=== PATIENT | female | born 1975 | race Caucasian/White ===

== ENCOUNTER 2022-08-02 06:55 | Day surgery (SDC) | payer OTHER ==
[2022-08-02] VITALS (226 sets, daily range): BP systolic 80–167; BP diastolic 37–114
[~2022-08-02] VITALS: Ht 175.3 cm; Wt 64.4 kg
--- NOTE | 2022-08-02 06:55 | NUR ---
Patient arrived to the [facility] suite, identification and demographics confirmed. Patient to room 10, AAO, ambulatory, vitals obtained, ID/allergy/fall bands placed, changed into hospital gown, EVELIN hose, and non-slip socks. Procedure and timeline explained for treatment and discharge. All questions answered and the patient presents no concerns at this time.
--- NOTE | 2022-08-02 07:45 | NUR ---
Dr. Cervantes telephoned with patient intake information including usage, dose, last dose/time taken and initial vital signs. Patient history and allergies reviewed with MD. Patient medicated per MD orders. In addition to Clonidine and Valium, patient received 1000 mcg B12 PO, 20 mg Pepcid PO, and Scopolamine TD patch. Medication indication and education provided prior to adminstration.
[2022-08-02 08:28] LABS: BASO% 0.8 % (0-3); EOS% 4.4 % (0-8); HEMATOCRIT 35.7 % (37.0-47.0); HEMOGLOBIN 11.4 g/dl (12.0-16.0); LYMPH% 24.4 % (15-41); MEAN CELL VOLUME 91.1 fL CALC (80.0-100.0); MEAN CORPUSCULAR HGB 29.1 pG CALC (26.0-32.0); MEAN CORPUSCULAR HGB CONC 31.9 g/dL CAL (32.0-36.0); MONO% 9.6 % (2-13); NEUT# 4.05 thou/uL (2.00-7.15); NEUT% 60.8 % (42-76); RED BLOOD COUNT 3.92 mill/uL (4.20-5.60); RED CELL DISTRI WIDTH 15.1 % (11.5-15.5)
[2022-08-02 08:33] LABS: ALBUMIN 4.1 g/dL (3.2-5.0); ALKALINE PHOSPHATASE 59 u/l (38-126); ANION GAP 11 (6-22 (CALC)); BILIRUBIN, TOTAL 0.4 mg/dL (0.02-1.3); BUN 9 mg/dL (7-17); BUN/CREATININE RATIO 20 (12-20 (CALC)); CARBON DIOXIDE 27 mmol/l (22-30); CHLORIDE 104 mmol/l (95-108); CREATININE 0.4 mg/dL (0.5-1.0); GFR FOR AFR.AMER. > 60 ML/MIN (>=60 (CALC)); GFR OTHER RACES > 60 ML/MIN (>=60 (CALC)); POTASSIUM 4.3 mmol/l (3.5-5.1); SGOT/AST 30 u/l (14-36); SODIUM 138 mmol/l (137-146)
[2022-08-02] MEDS ORDERED: LYRICA100 MG PO (10:15)
[2022-08-02] MEDS ORDERED: LEVOCETIRIZINE D5 MG PO (10:16)
[2022-08-02] MEDS ORDERED: HUMIRA40 MG/0.8 SC (10:17)
--- NOTE | 2022-08-02 12:10 | NUR ---
Induction Note Patient to [facility] procedure room. Time out performed at 1150. Patient placed on monitors, Larisa hugger, bilateral wrist restraints applied for ET tube protection. Versed 5mg given IV push at 1150 Tourniquet applied to rt arm Lidocaine 100mg given at 1152 IV push followed by Rocoronium 10mg at 1152 IV push and held for 90 seconds. Propofol bolus of 200mg given at 1153 IV push. Succinylcholine 80mg given IV push at 1154. Smooth intubation with 7.5 ETT. Positive CO2. Positive Auscultation for air exchange. Patient placed on ventilator for spontaneous ventilation. Placed on Propofol IV drip at 1155. OG inserted. Positive air on auscultation. Positive gastric content. Stomach washed at this time. Naltrexone 50mg given via OG tube with Clonidine 0.1 mg given via OG Tube. OG clamped for 45 minutes. Will monitor patient for symptoms of withdrawal and adjust propfol accordingly.
--- NOTE | 2022-08-02 12:55 | NUR ---
OG open note OG open at this time. Gastric content draining into drainage bag. OG to drain for 45 minutes. Propofol will be titrated down based on patient.
--- NOTE | 2022-08-02 13:40 | NUR ---
OG close note Stomach washed at this time. Naltrexone 50 mg with Clonidine 0.1 mg via OG tube. OG will be clamped for 45 minutes.
[2022-08-02] MEDS ORDERED: NALTREXONE50 MG PO (13:54)
[2022-08-02] MEDS ORDERED: CLONIDINE0.1 MG PO (13:54)
[2022-08-02] MEDS ORDERED: KLONOPIN2 MG PO (13:55)
--- NOTE | 2022-08-02 15:15 | NUR ---
OG close note Stomach washed at this time. Naltrexone 50 mg with Clonidine 0.1 mg via OG tube. OG will be clamped for 45 minutes.
--- NOTE | 2022-08-02 17:00 | NUR ---
glycopyrulanate 0.2mg iv given for bradycardia as per dr españa order, with good result. bp stable.
--- NOTE | 2022-08-02 17:10 | NUR ---
OG close note Stomach washed at this time. Naltrexone 12.5 mg with Clonidine 0 mg via OG tube. OG will be clamped for 45 minutes.
--- NOTE | 2022-08-02 17:55 | NUR ---
stomach rinsed and prepared for extubation, straight cath for 00cc yellow urine.
--- NOTE | 2022-08-02 18:10 | NUR ---
Extubation note Closing medications given Benadryl 50mg IV push, Decadron 10mg IV push,Magnesium 4 grams IV, Zofran 8mg IV push, Octreotide 100mcg SC. Stomach washed out prior to extubation. Suctioned gastric content. OG removed. Patient extubated. Propofol Discontinued. Wrist restraints removed. Larisa hugger Removed. See ANR Moderate sedate recovery record for further notes and assessment.
--- NOTE | 2022-08-02 19:20 | NUR ---
pt to room via stretcher in no distress, resp even and unlabored. vss. bedside report to VASYL Maxwell
--- NOTE | 2022-08-02 19:26 | NUR ---
PATIENT ARRIVED TO FLOOR AT 1849, PATIENT TRANSPORTED VIA BED, REPORT GIVEN BY NURSE JIMBO, PATIENT C/O BEING COLD, BEAR HUGGER IN PLACE, PATIENT LETHARGIC, SPEECH GARBLED, HAS 22RT HAND PATENT FLUSHES WELLM G 18 ON THE PATENT FLUSHES WELL, PATIENT WAS AGITATED TRASHING IN BED, PRN ATIVAN GIVEN, BED ALARM IN PLACE.
--- NOTE | 2022-08-03 | NUR ---
PATIENT RESTING IN BED, REMAINS ON O2 @ 2LPM VIA NC, PATIENT TURNED SELF, DUE CLONIDINE AND CLONAZEPAM GIVEN TOLERATED, BREATHING UNLABORED, BED ON LOW POSITION, BED ALARM IN PLACE.
[2022-08-03 02:35] VITALS: BP 96/53
[2022-08-03 03:00] VITALS: BP 96/53
--- NOTE | 2022-08-03 04:45 | NUR ---
PATIENT RESTING IN BED, EYES CLOSED, BREATHING EVEN UNLABORED NOT IN DISTRESS, BED ALARM IN PLACE.
[2022-08-03 05:30] LABS: BASO% 0.5 % (0-3); HEMATOCRIT 39.3 % (37.0-47.0); HEMOGLOBIN 12.5 g/dl (12.0-16.0); IMMATURE GRANULOCYTES 0.4 % (0.0-5.0); LYMPH% 9.7 % (15-41); MEAN CELL VOLUME 91.8 fL CALC (80.0-100.0); MEAN CORPUSCULAR HGB 29.2 pG CALC (26.0-32.0); MEAN CORPUSCULAR HGB CONC 31.8 g/dL CAL (32.0-36.0); MONO% 2.6 % (2-13); NEUT# 7.04 thou/uL (2.00-7.15); NEUT% 86.8 % (42-76); RED BLOOD COUNT 4.28 mill/uL (4.20-5.60); RED CELL DISTRI WIDTH 15.4 % (11.5-15.5)
[2022-08-03 05:56] LABS: ALBUMIN 4.3 g/dL (3.2-5.0); ALKALINE PHOSPHATASE 85 u/l (38-126); BUN 9 mg/dL (7-17); BUN/CREATININE RATIO 20 (12-20 (CALC)); CHLORIDE 109 mmol/l (95-108); CREATININE 0.4 mg/dL (0.5-1.0); GFR FOR AFR.AMER. > 60 ML/MIN (>=60 (CALC)); GFR OTHER RACES > 60 ML/MIN (>=60 (CALC)); MAGNESIUM 2.1 mg/dL (1.6-2.3); POTASSIUM 3.9 mmol/l (3.5-5.1); SGOT/AST 28 u/l (14-36); SODIUM 140 mmol/l (137-146); TOTAL PROTEIN 7.3 g/dL (6.3-8.2)
[2022-08-03 06:07] LABS: ANION GAP 14 (6-22 (CALC)); BILIRUBIN, TOTAL 0.9 mg/dL (0.02-1.3); CARBON DIOXIDE 21 mmol/l (22-30)
[2022-08-03 06:22] VITALS: BP 115/93
[2022-08-03 07:22] VITALS: BP 115/93
--- NOTE | 2022-08-03 07:45 | NUR ---
REPORT RECEIVED FROM PM NURSE. SHIFT ASSESSMENT COMPLETED AT THIS TIME. IV PATENT. AM MEDS GIVEN. CALL LIGHT IN REACH. BED ALARM IN PLACE FOR PATIENT SAFETY. WILL CONTINUE TO MONITOR.
[2022-08-03 07:54] VITALS: BP 115/93
--- NOTE | 2022-08-03 11:00 | NUR ---
report margaret gong rn
--- NOTE | 2022-08-03 12:58 | NUR ---
PT AMBULATING IN HALLWAY ACCOMPANIED BY Greta GILES CNA
--- NOTE | 2022-08-03 15:45 | NUR ---
Discharge instructions given. Patient verbalizes understanding of same. Discharged in stable condition via Wheelchair to Home with family. All belongings sent with pt.
== END 2022-08-03 15:45 | disposition home or self-care (01) | DRG 897 ==
LOC: ANR 06:55 → MS2 06:55 → ANR 08:00 → MS2 16:50 → ANR 08-03 15:45 → MS2 08-03 15:45
PROVIDERS: ATTEND Anesthesiology Critical Care Medicine
DX: F11.20 Opioid dependence, uncomplicated (principal)
CPT/HCPCS: J0131; J2060; J2354; J3475